=== PATIENT | female | born 1950 | race Caucasian/White ===

== ENCOUNTER 2016-11-15 09:46 | Emergency (ER) | payer OTHER ==
[2016-11-15 09:52] VITALS: RESP 18
--- NOTE | 2016-11-15 10:28 | EDPHY ---
HPI/HX/ROS/PE/MDM Narrative: Chief complaint: Left leg pain HPI: 66-year-old woman was in a bagel shop yesterday when she slipped on a wet floor extending her left leg. She did land on her left hip, but states that her pain is in the back of her left leg. She is able to ambulate but has pain with ambulation. No prior injuries. No numbness or weakness. Patient states pain is worse when she tries to fully extend her leg and she has pain when she tries to bend it. Pain is in the back of her left thigh. Did not hit her head. No loss of conscious. No other complaints. She did take a [place] at 2 o' clock this morning which enabled her to sleep. He has had no pain medicine since. ROS: 10 point Review of Systems is negative except as noted in the HPI. Physical exam: General: Awake, alert, no acute distress Left leg: She has no tenderness to the hip. There is no tenderness to the pelvis with AP or lateral compression. There is minimal tenderness in the posterior thigh. She has pain with forced flexion against resistance and the thigh, however she does have full strength. She has pulling pain in her posterior thigh with full extension. She has no weakness in the flexors or extensors. There is no knee tenderness. There is no erythema or edema. Skin: No rash ED Course: Left hip x-rays negative for acute bony injury. Patient's symptoms are consistent with a pulled hamstring. She has flexion strength and is able to resist so there is no findings to suggest a complete rupture. She is no large swelling to suggest this either. She is have relief with [place]. Will send her home with analgesia and instructions to follow up with her primary care provider and orthopedist in about a week. General Time Seen by Provider: 11/15/16 10:08 Initial Vital Signs: Initial Vital Signs Heart Rate 78 11/15/16 09:48 Respiratory Rate 18 11/15/16 09:48 Blood Pressure 125/75 H 11/15/16 09:48 O2 Sat (%) 96 11/15/16 09:48 O2 Delivery Mode Room Air Allergies/Adverse Reactions: No Known Allergies Allergy (Verified 11/15/16 09:48) Home Medications: Medication Instructions Recorded Arava 10 mg (RX) 12/25/14 Plaquenil 200 mg (RX) 12/25/14 Hydrochlorothiazide [HCTZ (*)] 12.5 mg PO 11/15/16 Hydrocodone/Acetaminophen 1 - 2 each PO Q4-6PRN PRN #10 11/15/16 [Hydrocodon-Acetaminophen 5-325] tablet Departure - Departure Disposition: Home, Routine, Self-Care Clinical Impression: Hamstring strain Condition: Good Instructions: Hamstring Injury (ED) Additional Instructions: You may take [place] for pain. Follow up with Orthopedics and your primary care physician in about a week for reassessment. Return to the emergency department for increasing pain, difficulty breathing, or any other concerns. Referrals: CLARE REMY [Primary Care Provider] - As per Instructions Raymond Ashley MD [Medical Doctor] - As per Instructions Prescriptions: Hydrocodone/Acetaminophen [Hydrocodon-Acetaminophen 5-325] 1 - 2 each PO Q4- 6PRN PRN #10 tablet PRN Reason: Pain, Severe
[2016-11-15 11:35] VITALS: BP 151/90; PULSE 76; TEMP 98.1; O2SAT 95
--- NOTE | 2016-11-15 11:42 | DX ---
Left Hip Series, Two Views History: Pain following trauma. Slip and fall yesterday landing on left hip. Findings: Osseous structures are intact without fracture. Hip joint spaces are normal. The SI joints and symphysis are also normal. Soft tissues are normal as well. There are a few phleboliths in the lo wer pelvis. Impression: No acute abnormality seen about the pelvis with attention left hip.
== END 2016-11-15 11:35 | disposition home or self-care (01) ==
DX: S76.312A Strain of muscle, fascia and tendon of the posterior muscle group at thigh level, left thigh, initial encounter (principal); W18.40XA Slipping, tripping and stumbling without falling, unspecified, initial encounter

== ENCOUNTER → 2019-01-20 | Outpatient (CLI) | payer OTHER | LOC: FIMAGING 12:44 | PROVIDERS: ATTEND Family Medicine | DX: Z12.31 Encounter for screening mammogram for malignant neoplasm of breast (principal); Z80.3 Family history of malignant neoplasm of breast ==